=== PATIENT | female | born 1955 | race Caucasian/White ===

== ENCOUNTER → 2016-05-20 | Day surgery (SDC) | payer OTHER ==
[~2016-05-20] MED LIST: BUPROPION XL300 MG PO; CITALOPRAM HBR10 MG PO; HYDROCODON-ACE1 EAC5 PO; OMEPRAZOLE40 M1 PO; PURALOR CI TAB1 EACH; SEROQUEL100 MG PO; SYNTHROID0.05 MG PO; SYNTHROID125 PO; VIT B12 PO; VIT D PO; ZANAFLEX4 M1 PO; ZOFRAN8 MG
--- NOTE | ~2016-05-20 | OR ---
Unit #: [id number] #: [id number] Patient: WALDO RUBIO [id number] [address] [address] [id number] O MR#: [id number] NAME: WALDO RUBIO ROOM: Date of Procedure: 05/20/2016 Admission Date: 05/20/2016 Surgeon: Harvinder Salcedo M.D. : 1955 Attending Physician: Harvinder Salcedo M.D. Referring Physician: Harvinder Salcedo M.D. Primary Care Physician: Du Gardner M.D. OPERATIVE REPORT PROCEDURES PERFORMED Colonoscopy with polypectomy and esophagogastroduodenoscopy. PREOPERATIVE DIAGNOSES Chronic gastroesophageal reflux disease and history of chronic colitis. POSTOPERATIVE DIAGNOSES Transverse colon polyp, internal hemorrhoids, hiatal hernia, refluxing esophagitis. ANESTHESIA Monitored anesthesia care. DESCRIPTION OF PROCEDURE COLONOSCOPY: After adequate explanation of the risks, benefits and alternatives of the procedure, an informed consent was obtained from the patient. The patient was brought to the Endoscopy Suite. Intravenous sedation was administered. The patient was placed in the left lateral position. The colonoscope was introduced into the rectum and advanced to the cecum without difficulty. Once in the cecum, the anatomic landmarks were identified very well. The ileocecal valve was examined. The appendiceal orifice was examined. The scope was slowly withdrawn with the findings as noted in the next section. Adequate mucosal visualization of the colonic mucosa was done upon slow withdrawal. The scope was slowly withdrawn into the rectum and a retroflexed view was also obtained. The scope was withdrawn. The patient tolerated the procedure very well. EGD: After adequate explanation of the risks, benefits and alternatives of the procedure, an informed consent by the patient was obtained. The patient was brought to the Endoscopy Suite. Intravenous sedation was administered. With the patient lying in the left lateral position and after placing the mouthpiece in the mouth, after adequate visualization of the vocal cords, a laryngoscopy was also done and the scope was passed via cricopharyngeus into the esophagus. After this, the esophageal mucosa was examined with an examination of the proximal, middle, and distal esophagus. The scope was then advanced into the stomach where a retroflexed view was obtained to examine the fundus and the angularis incisura. The lesser and greater curvature were examined. After adequate air insufflation, the antrum was then examined. The scope was then advanced to the pylorus and the scope was passed via pylorus up to the descending duodenum. The duodenal bulge and descending duodenum were Unit #: [id number] #: [id number] Patient: WALDO RUBIO examined very well. The scope was slowly withdrawn. The patient tolerated the procedure very well. COLONOSCOPY FINDINGS CECUM: Normal. ILEOCECAL VALVE: Normal. APPENDICEAL ORIFICE: Normal. ASCENDING COLON: Retained stools, otherwise unremarkable. TRANSVERSE COLON: Evidence of a 5-mm polypoid lesion, removed with fulguration technique. No specimen obtained. Retained stool was noted. DESCENDING COLON: Retained stools. SIGMOID COLON: Retained stools. RECTUM: Internal hemorrhoids. Scope withdrawal time was over 6 minutes. EGD FINDINGS LARYNGOSCOPY: ESOPHAGUS: Proximal esophagus, normal. Middle esophagus, normal. Distal esophagus shows a small hiatal hernia, refluxing esophagitis. STOMACH: Fundus normal. Angularis incisura normal. LESSER CURVATURE: Normal. GREATER CURVATURE: Normal. ANTRUM: Normal. DUODENUM: Bulb normal. Descending normal. ASSESSMENT AND PLAN 1. The patient is a 60-year-old female presenting with chronic gastroesophageal reflux disease. Esophagogastroduodenoscopy shows evidence of hiatal hernia and refluxing esophagitis. In addition to lifestyle and diet modifications, she will be placed on proton pump inhibitor. 2. Transverse colon polyp. Followup colonoscopy in about 3 years is recommended, although the patient's colon prep was suboptimal. Dictated by... Kelli Monk/herbert TD: 05/21/2016 05:52 JOB #: [id number] Unit #: [id number] #: [id number] Patient: WALDO RUBIO OPERATIVE REPORT Page 1 of 1 X Harvinder Salcedo MD X PROCEDURE OPERATIVE NOTE
== END | disposition home or self-care (01) ==
LOC: COPS 12:09
DX: K21.0 Gastro-esophageal reflux disease with esophagitis (principal); K44.9 Diaphragmatic hernia without obstruction or gangrene; D12.3 Benign neoplasm of transverse colon; K64.8 Other hemorrhoids; Z87.19 Personal history of other diseases of the digestive system; I12.9 Hypertensive chronic kidney disease with stage 1 through stage 4 chronic kidney disease, or unspecified chronic kidney disease; N18.9 Chronic kidney disease, unspecified; E03.9 Hypothyroidism, unspecified; E66.9 Obesity, unspecified; M19.90 Unspecified osteoarthritis, unspecified site; Z90.710 Acquired absence of both cervix and uterus
CPT/HCPCS: J2250